=== PATIENT | male | born 1975 | race Native Hawaiian/Other Pacific Islander ===

== ENCOUNTER 2017-10-15 01:46 | Emergency (ER) | payer BC, OTHER ==
[2017-10-15 02:08] VITALS: RESP 18; O2SAT 100
--- NOTE | 2017-10-15 02:29 | ED PDOC ---
Arrival/HPI - General Historian: Patient - History of Present Illness Time/Duration: Prior to Arrival Symptom Onset: Gradual Symptom Course: Worsening Quality: Unable to Describe Severity Level: 6 Activities at Onset: Rest Context: Home - General Chief Complaint: Cough, Cold, Congestion Time Seen by Provider: 10/15/17 01:58 - History of Present Illness Narrative History of Present Illness (Text): 10/15/17 02:44 Patient is a 42 M with no significant past medical history who presents with complaints of rhinorrhea, productive cough, fever, itchy eyes, headaches, body aches. Patient states these symptoms began yesterday and resolved initially with claritin, however the symptoms returned and were not relieved with multi cold pack. Patient then decided to come to the emergency department for further evaluation. States he did receive the flu vaccination in April 2017. Denies abdominal pain, nausea, vomiting, chest pain, palpitations, shortness of breath , weakness, dizziness. PMD: denies PMH: Asthma during childhood, not currently medicated Surgical history: denies Allergies: denies Family history: non-contributory Social history: former smoker quit in 2005, denies alcohol and drug abuse (Terrance Feldman) Past Medical History - Provider Review Nursing Documentation Reviewed: Yes - Infectious Disease Hx of Infectious Diseases: None - Psychiatric Hx Substance Use: No - Anesthesia Hx Anesthesia: No Family/Social History - Physician Review Nursing Documentation Reviewed: Yes Family/Social History: Diabetes, Hypertension Smoking Status: Former Smoker (quit in 2005) Hx Alcohol Use: No Hx Substance Use: No Allergies/Home Meds Allergies/Adverse Reactions: Allergies No Known Allergies Allergy (Verified 10/15/17 01:57) Review of Systems - Review of Systems Constitutional: Fatigue, Fevers Eyes: absent: Vision Changes ENT: absent: Hearing Changes Respiratory: Cough, Sputum (white colored). absent: SOB Cardiovascular: absent: Chest Pain, Palpitations Gastrointestinal: absent: Abdominal Pain, Diarrhea, Nausea, Vomiting Genitourinary Male: absent: Dysuria Musculoskeletal: Myalgias Skin: absent: Rash Neurological: Headache. absent: Dizziness Psychiatric: absent: Anxiety Physical Exam Vital Signs Reviewed: Yes Temperature: Afebrile Blood Pressure: Normal Pulse: Regular Respiratory Rate: Normal Appearance: Positive for: Well-Appearing, Non-Toxic, Comfortable Pain Distress: None Mental Status: Positive for: Alert and Oriented X 3 - Systems Exam Head: Present: Atraumatic, Normocephalic Pupils: Present: PERRL Extroacular Muscles: Present: EOMI Conjunctiva: Present: Normal Mouth: Present: Moist Mucous Membranes Neck: Present: Normal Range of Motion Respiratory/Chest: Present: Wheezes (inspiratory ), Rhonchi (bilateral upper and lower lobes). No: Clear to Auscultation Cardiovascular: Present: Regular Rate and Rhythm Abdomen: Present: Tenderness Neurological: Present: GCS=15, CN II-XII Intact, Speech Normal Psychiatric: Present: Alert, Oriented x 3, Normal Insight, Normal Concentration Vital Signs Temp Pulse Resp BP Pulse Ox 10/15/17 03:50 98.3 F 81 18 120/81 100 10/15/17 01:46 98.5 F 86 18 135/81 100 Medical Decision Making Re-evaluation Time: 03:32 - Lab Interpretations I have reviewed the lab results: Yes Interpretation: All labs normal ED Course and Treatment: In agreement with resident note, which includes further HPI details. Patient was seen and evaluated with resident, came up with plan and treatment together. (Tone Rivera) Rapid flu negative however considering patient's symptoms and recent exposure to the flu, patient will be sent home with tamiflu and a Z-pack. 10/15/17 03:32 (Terrance Feldman) - Lab Interpretations Lab Results: 10/15/17 02:25 10/15/17 02:25 Lab Results 10/15/17 02:25: Sodium 144, Potassium 4.1, Chloride 101, Carbon Dioxide 27, Anion Gap 19, BUN 16, Creatinine 1.1, Est GFR ( Amer) > 60, Est GFR (Non- Af Amer) > 60, Random Glucose 118 H, Calcium 9.1 10/15/17 02:25: WBC 9.0, RBC 4.89, Hgb 14.8, Hct 41.1 L, MCV 84.0, MCH 30.3, MCHC 36.0, RDW 12.4, Plt Count 182, MPV 10.0, Gran % 76.5 H, Lymph % (Auto) 13.1 L, [place] % (Auto) 7.3 H, Eos % (Auto) 3.0, Baso % (Auto) 0.1, Gran # 6.92 H , Lymph # (Auto) 1.2, [place] # (Auto) 0.7 H, Eos # (Auto) 0.3, Baso # (Auto) 0.01 10/15/17 02:25: Influenza Typ A,B (EIA) Negative for flu a/b - RAD Interpretation Radiology Orders: 10/15/17 02:14 CHEST PORTABLE [RAD] Stat - Medication Orders Current Medication Orders: Discontinued Medications Azithromycin (Zithromax) 500 mg PO STAT STA PRN Reason: Protocol Stop: 10/15/17 03:32 Last Admin: 10/15/17 03:37 Dose: 500 mg Guaifenesin (Robitussin) 100 mg PO ONCE ONE Stop: 10/15/17 03:08 Last Admin: 10/15/17 03:21 Dose: 100 mg Oseltamivir Phosphate (Tamiflu Cap) 75 mg PO ONCE ONE PRN Reason: Protocol Stop: 10/15/17 03:07 Last Admin: 10/15/17 03:21 Dose: 75 mg Disposition/Present on Arrival - Present on Arrival Any Indicators Present on Arrival: No History of DVT/PE: No History of Uncontrolled Diabetes: No Urinary Catheter: No History of Decub. Ulcer: No History Surgical Site Infection Following: None - Disposition Have Diagnosis and Disposition been Completed?: Yes Disposition Time: 03:34 Patient Plan: Discharge - Disposition Diagnosis: Upper respiratory disease Disposition: HOME/ ROUTINE Patient Problems: Current Active Problems Problem Status Onset Upper respiratory disease Acute Condition: FAIR Discharge Instructions (ExitCare): Bacterial Upper Respiratory Infection, Adult Additional Instructions: Mr. Maria, thank you for letting us take care of you today. You were treated for your upper respiratory infection. The emergency medical care you received today was directed at your acute symptoms. Your medications were sent directly to your pharmacy so please go to your pharmacy to cook pickled meat your medications. It may take several days for your symptoms to resolve. Return to the Emergency Department if your symptoms worsen, do not improve, or if you have any other problems. Please contact your doctor or call one of the physicians/clinics you have been referred to that are listed on the Patient Visit Information form that is included in your discharge packet. Bring any paperwork you were given at discharge with you along with any medications you are taking to your follow up visit. Our treatment cannot replace ongoing medical care by a primary care provider (PCP) outside of the emergency department. Thank you for allowing the [facility] team to be part of your care today. If you had an X-Ray or CT scan: A Radiologist will review the ED reading if any change in treatment is needed we will contact you. If you had a blood, urine, or wound culture: It will take several days for the results, if any change in treatment is needed we will contact you. If you had an STI test: It will take 48 hours for the results. Please call after 1 week if you have not heard back. Prescriptions: Oseltamivir [Tamiflu] 75 mg PO BID #10 cap Azithromycin [Zithromax] 250 mg PO DAILY #4 tab Forms: [employer] (Welsh), WORK NOTE
[2017-10-15 02:43] LABS: BASO # 0.01 K/mm3 (0.0-2.0); BASO % 0.1 % (0.0-3.0); EOS # 0.3 (0.0-0.7); GRAN # 6.92 (1.4-6.5); GRAN % 76.5 % (50.0-68.0); HEMOGLOBIN 14.8 g/dL (14.0-18.0); LYMPH # 1.2 (1.2-3.4); LYMPH % 13.1 % (22.0-35.0); MEAN CORPUSCULAR HEMOGLOBIN 30.3 pg (25.0-35.0); MONO # 0.7 (0.1-0.6); MONO % 7.3 % (1.0-6.0); RBC 4.89 10^6/uL (3.5-6.1); RED CELL DISTRIBUTION WIDTH 12.4 % (11.5-14.5)
[2017-10-15 02:50] LABS: BLOOD UREA NITROGEN 16 mg/dL (7-21); CALCIUM 9.1 mg/dL (8.4-10.5); GFR AFRICAN-AMERICAN > 60; GFR NON-AFRICAN AMERICAN > 60
[2017-10-15] MEDS ORDERED: guaiFENesin 100 mg/5 ml Syrup UD PO ONE (03:07)
[2017-10-15 03:51] VITALS: BP 120/81; PULSE 81; TEMP 98.3
--- NOTE | 2017-10-15 09:59 | RAD ---
HISTORY: rhonchorous, URI symptoms COMPARISON: No prior. FINDINGS: LUNGS: No active pulmonary disease. PLEURA: No significant pleural effusion identified, no pneumothorax apparent. CARDIOVASCULAR: Normal. OSSEOUS STRUCTURES: No significant abnormalities. VISUALIZED UPPER ABDOMEN: Normal. OTHER FINDINGS: None. IMPRESSION: No active disease.
== END 2017-10-15 03:50 | disposition home or self-care (01) ==
LOC: MERGE 01:46 → ED 01:46
DX: J06.9 Acute upper respiratory infection, unspecified (principal); Z87.891 Personal history of nicotine dependence

== ENCOUNTER 2018-06-11 06:47 | Outpatient (CLI) | payer OTHER | END 2018-06-11 06:48 | disposition home or self-care (01) | LOC: LAB 06:47 ==